=== PATIENT | female | born 1985 | race Caucasian/White ===

== ENCOUNTER 2019-08-27 22:23 | Emergency (ER) | payer MEDICAID ==
[~2019-08-27] VITALS: Ht 170.2 cm; Wt 68.0 kg
[2019-08-27] MEDS ORDERED: AMOXICILLIN 500 MG CAPSULE ONE (23:12)
[2019-08-27] MEDS ORDERED: AMOXICILLIN 500 MG CAPSULE PO ONE (23:30)
[2019-08-27] MEDS ORDERED: PLEASE ENTER ALLERGIES MC SCH (23:30)
[2019-08-27 23:43] VITALS: BP 126/74
== END 2019-08-27 23:45 | disposition home or self-care (01) ==
LOC: ED 22:30
DX: K04.7 Periapical abscess without sinus (principal); Z87.891 Personal history of nicotine dependence
CPT/HCPCS: 99283